=== PATIENT | male | born 1945 ===

== ENCOUNTER 2017-06-20 12:50 | Outpatient (CLI) | payer MEDICARE ==
[~2017-06-20] VITALS: Ht 175.3 cm; Wt 108.9 kg
[2017-06-20] MEDS ORDERED: METO-395 PO (14:42)
[2017-06-20] MEDS ORDERED: PROM25TA14 PO (14:42)
[2017-06-20] MEDS ORDERED: OMEP40CA36 PO (14:42)
[2017-06-20] MEDS ORDERED: SIMV20TA3 PO (14:42)
[2017-06-20] MEDS ORDERED: ACET-2055 PO (14:43)
== END 2017-06-20 14:54 ==
LOC: PREOP 12:50
PROVIDERS: ATTEND Surgery
DX: Z01.818 Encounter for other preprocedural examination (principal); K81.1 Chronic cholecystitis